=== PATIENT | male | born 1950 | race Caucasian/White ===

== ENCOUNTER 2022-08-21 17:25 | Inpatient (IN) | payer MEDICARE ==
[~2022-08-21] VITALS: Ht 172.7 cm; Wt 72.6 kg
[2022-08-21] MEDS ORDERED: Prinivil10 MG PO (19:47)
[2022-08-21] MEDS ORDERED: NOVOLOG100 UNIT/2 (19:47)
[2022-08-21 19:50] LABS: BASOPHILS ABSOLUTE AUTO 0.02 K/mm3 (0.00-0.23); BASOPHILS PERCENT AUTO 0 % (0-2); EOSINOPHILS ABSOLUTE AUTO 0.08 K/mm3 (0.00-0.68); EOSINOPHILS PERCENT AUTO 1 % (0-6); Hematocrit 36.6 % (37.0-53.0); Hemoglobin 12.9 g/dL (13.5-17.5); IMMATURE GRAN ABSOLUTE AUTO 0.01 K/mm3 (0.00-0.10); IMMATURE GRAN PERCENT AUTO 0 % (0-1); LYMPHOCYTES ABSOLUTE AUTO 1.82 K/mm3 (0.84-5.20); LYMPHOCYTES PERCENT AUTO 28 % (21-46); MONOCYTES ABSOLUTE AUTO 0.41 K/mm3 (0.16-1.47); MONOCYTES PERCENT AUTO 6 % (4-13); Mean Corpuscular HGB 31.9 pg (26.0-34.0); Mean Corpuscular HGB Conc 35.2 g/dL (31.5-36.5); Mean Corpuscular Volume 91 fL (80-100); Mean Platelet Volume 10.6 fL (9.1-12.4); NEUTROPHILS ABSOLUTE AUTO 4.23 K/mm3 (1.96-9.15); NEUTROPHILS PERCENT AUTO 64 % (41-73); Platelet Count 212 K/mm3 (150-400); RDW Coefficient Variation 12.5 % (11.7-14.2); RDW Standard Deviation 40.8 fL (35.1-46.3); Red Blood Cell Count 4.04 M/mm3 (4.30-5.90); White Blood Cell Count 6.57 K/mm3 (4.00-11.30)
[2022-08-21 20:16] LABS: Albumin, Blood 3.5 g/dL (3.4-5.0); Albumin/Globulin Ratio 1.3 (0.8-1.8); Bilirubin, Total 0.7 mg/dL (0.1-1.0); Bun/Creatinine Ratio 33.5 (12.0-20.0); Calcium, Blood 9.6 mg/dL (8.5-10.1); Creatinine, Blood 0.72 mg/dL (0.60-1.20); Globulin, Blood 2.7 g/dL (2.2-4.0); Magnesium, Blood 2.4 mg/dL (1.6-2.4); Potassium, Blood 4.2 mmol/L (3.5-5.5); Total Protein, Blood 6.2 g/dL (6.4-8.2)
[2022-08-21 20:43] LABS: International Normalized Ratio 1.07; Prothrombin Time Results 11.2 Sec (9.7-11.5)
[2022-08-22 03:44] LABS: Mean Corpuscular HGB 31.5 pg (26.0-34.0); Mean Corpuscular HGB Conc 35.1 g/dL (31.5-36.5); Mean Corpuscular Volume 90 fL (80-100); Mean Platelet Volume 10.3 fL (9.1-12.4); Platelet Count 212 K/mm3 (150-400); RDW Coefficient Variation 12.3 % (11.7-14.2); Red Blood Cell Count 4.13 M/mm3 (4.30-5.90); White Blood Cell Count 7.96 K/mm3 (4.00-11.30)
[2022-08-22 04:03] LABS: Bun/Creatinine Ratio 35.5 (12.0-20.0); Calcium, Blood 8.8 mg/dL (8.5-10.1); Creatinine, Blood 0.76 mg/dL (0.60-1.20); Potassium, Blood 3.9 mmol/L (3.5-5.5)
--- NOTE | 2022-08-22 06:38 | NUR ---
SHIFT SUMMARY: NEURO: PATIENT ALERT AND ORIENTED CARDIAC: PATIENT HR 30'S TO 50S WITH THE LOWEST RECORDED RATE AT 27 SUSTAINED. BP STABLE WHEN HR IS 34 AND UP. PATIENT IN SECOND DEGREE HEART BLOCK, ON DOPAMINE FOR RATE AND BP. AFEBRILE. EPISODES OF HOT FLASHES AND NAUSEA OCCASIONALLY. RESP: RA. LUNGS CLEAR. NO SOB REPORTED. GI: PATIENT NAUSEATED, ONE DOSE OF PRN ZOFRAN GIVEN : USED URINAL IND. VOIDED ADEQUATE UOP SKIN: WNL OTHER: PATIENT STATES THAT HE TAKES GOSERELIN FOR HIS PROSTATE CANCER, AND STATES DIZZINESS WORSENED AND HOT FLASHES STARTED. DID NOT RECEIVE 'S DOSE. PATIENT HAS OWN INSULIN PUMP AND DOSES ACCORDINGY.
--- NOTE | 2022-08-22 07:30 | NUR ---
ASSUMED CARE PT. ALERT AND ORIENTED THIS AM. ABLE TO REPOSITION SELF IN BED FOR COMFORT. PT. DENIES ANY PAIN THIS AM. CURRENTLY ON DOPAMIN GTT FOR BRADYCARDIA. PT. HR OCCASIONALLY DROPS TO MID 30S, THEN RETURNS TO THE 50S. PT. REPORTS HX OF OCCASIONAL DIZZINESS WHEN HR DROPS BUT DENIES AT THIS TIME, HOWEVER DOES REPORT HAVING "HOT FLASH" WHEN HR IS IN THE 30S. PT. REMAINS ON BEDREST AT THIS TIME. PLANS FOR PACEMAKER THIS AM. SECURITY TO BEDSIDE PER PT REQUEST TO TAKE WALLETS TO SAFE. OTHER BELONGINGS IN PT BELONINGS BAG AND LOCKED IN IN ROOM CABINENT. BG CHECK THIS AM, PT MANAGING BG WITH HOME INSULIN PUMP. PT. CALL LIGHT IN REACH.
--- NOTE | 2022-08-22 08:09 | NUR ---
DR. MONTES TO PT BEDSIDE TO CONSENT PT FOR PACEMAKER.
--- NOTE | 2022-08-22 09:20 | NUR ---
PT TO COMPOSING MACHINE OPERATOR AT THIS TIME.
--- NOTE | 2022-08-22 12:00 | NUR ---
PT. BACK FROM SALES COUNSELOR, SITE ASSESSED DURING HAND OFF WITH SALES COUNSELOR STAFF, MILD SWELLING TO SITE, DRESSING CLEAN DRY AND INTACT. PT. RYTHM PACED RATE CURRENTLY 58. PT VSS UPON ARRIVAL TO UNIT. PT INSTRUCTED ON USE OF ARM, AND SLING PLACED TO LEFT SHOULDER.
--- NOTE | 2022-08-22 13:21 | NUR ---
PT HR INCREASED TO 120S, PACER SPIKES NOTED WITH EVERY BEAT, MANUAL PULSE MATCHED RATE SHOWING, PT DENIED ANY CHEST PAIN OR PRESSURE, BP DECREASED WITH RATE INCREASED. AFTER APPROX 1 MIN, PT RATE RETURNED TO THE 60S. PT RATE THEN INCREASED AGAIN TO THE LOW 100S. PACER SPIKES NOTED BEFORE EVERY BEAT. CALL TO DR. MONTES TO UPDATE.
--- NOTE | 2022-08-22 16:45 | NUR ---
PT. TO IMAGING FOR CHEST XRAY. RESTING COMFORTABLY IN BED. VSS. NO ADDITIONAL SWELLING OR BRUISING TO PACER SITE.
--- NOTE | 2022-08-22 18:43 | NUR ---
SHIFT SUMMARY PT. REMAINS ALERT AND ORIENTED. DUAL CHAMBER PACEMAKER PLACED THIS AM. MINIMAL REDNESS AND SWELLING TO SITE, REMAINS UNCHANGED. NO OOZING NOTED. PT. HAS SLING IN PLACE TO LEFT ARM. PT MANAGING BG WITH HOME INSULIN PUMP. PLANS FOR D/C TO HOME TOMORROW. FOLLOW UP APPOINTMENT INFO FOR [facility] IS IN CHART.
--- NOTE | 2022-08-22 22:13 | NUR ---
PT. TRANSFERED TO U [facility], REPORT GIVEN TO MJ KING
--- NOTE | 2022-08-22 23:21 | NUR ---
CARE ASSUMPTION: PATIENT ICU TRANSFER ARRIVED BY BRENDAN AT 2150 AND WALKED TO PCU BED. PACER PACED AT 50, AFEBRILE, 1/10 PAIN FOLLOWING MEDICATION ADMIN IN ICU. VS WNL. PACER SITE C/D/I, NO HEMATOMA. PATIENT COMPLIANT WITH KEEPING LEFT ARM IN SLING. PLEASANT AND COOPERATIVE WITH CARE. USES URINAL AT BEDSIDE AND CALL APPROPRIATELY. PLAN TO D/C HOME TOMORROW. BED LOW AND CALL LIGHT IN REACH.
[2022-08-23 03:57] LABS: Hematocrit 34.5 % (37.0-53.0); Hemoglobin 12.2 g/dL (13.5-17.5); Mean Corpuscular HGB 31.9 pg (26.0-34.0); Mean Corpuscular HGB Conc 35.4 g/dL (31.5-36.5); Mean Corpuscular Volume 90 fL (80-100); Platelet Count 162 K/mm3 (150-400); RDW Coefficient Variation 12.3 % (11.7-14.2); RDW Standard Deviation 40.2 fL (35.1-46.3); Red Blood Cell Count 3.83 M/mm3 (4.30-5.90); White Blood Cell Count 6.24 K/mm3 (4.00-11.30)
[2022-08-23 04:23] LABS: Albumin, Blood 3.1 g/dL (3.4-5.0); Albumin/Globulin Ratio 1.1 (0.8-1.8); Bilirubin, Total 0.8 mg/dL (0.1-1.0); Bun/Creatinine Ratio 26.8 (12.0-20.0); Calcium, Blood 8.7 mg/dL (8.5-10.1); Creatinine, Blood 0.89 mg/dL (0.60-1.20); Globulin, Blood 2.9 g/dL (2.2-4.0); Potassium, Blood 3.8 mmol/L (3.5-5.5); Thyroid Stimulating Hormone 6.47 uIU/mL (0.360-4.800)
--- NOTE | 2022-08-23 06:42 | NUR ---
SHIFT SUMMARY: PATIENT VS WNL RA, PACER PACING IN 50S THOUGH HR WAS >70 DURING 0400 VITALS. A&O X4. PLAN TO D/C TODAY. USES URINAL AT BEDSIDE AND CAN AMBULATE. NO ADVERSE EVENTS THIS SHIFT. MEDICATED PER EMAR. BED LOW WITH CALL LIGHT IN PLACE. WILL REPORT TO ONCOMING RN.
[2022-08-23] MEDS ORDERED: ATEN25 PO (11:49)
[2022-08-23] MEDS ORDERED: ACET325 PO (11:50)
--- NOTE | 2022-08-23 12:33 | NUR ---
DISCHARGE SUMMARY PT AMBULATED TO PERSONAL VEHICLE ESCORTED BY THIS RN. ALL PERSONAL BELONGINGS AND DISCHARGE INSTRUCTIONS WERE IN THE POSSESSION OF THE PT AND THEIR FRIEND AT THE TIME OF DISCHARGE. ALL QUESTIONS AND CONCERNS WERE ADDRESSED PRIOR TO DISCHARGE AND PT STATED AN UNDERSTANDING OF DISCHARGE INSTRUCTIONS AND WHOM TO CONTACT WITH FURTHER QUESTIONS AND CONCERNS.
== END 2022-08-23 12:22 | disposition home or self-care (01) | DRG 244 ==
LOC: ER 17:25 → ICUW 17:27 → ER 18:29 → ICUW 18:29 → PCU 08-22 22:05
PROVIDERS: Emergency Medicine; Internal Medicine; ADMIT Internal Medicine
PROC: 0JH606Z Insertion of Pacemaker, Dual Chamber into Chest Subcutaneous Tissue and Fascia, Open Approach (ICD-10-PCS; principal; 2022-08-22)
PROC: 02H63JZ Insertion of Pacemaker Lead into Right Atrium, Percutaneous Approach (ICD-10-PCS; 2022-08-22)
PROC: 02HK3JZ Insertion of Pacemaker Lead into Right Ventricle, Percutaneous Approach (ICD-10-PCS; 2022-08-22)
DX: I44.2 Atrioventricular block, complete (principal); F10.20 Alcohol dependence, uncomplicated; G43.909 Migraine, unspecified, not intractable, without status migrainosus; I10 Essential (primary) hypertension; E10.21 Type 1 diabetes mellitus with diabetic nephropathy; D63.8 Anemia in other chronic diseases classified elsewhere; C61 Malignant neoplasm of prostate; Z87.891 Personal history of nicotine dependence; Z90.49 Acquired absence of other specified parts of digestive tract; Z91.048 Other nonmedicinal substance allergy status; Z79.4 Long term (current) use of insulin; Z79.899 Other long term (current) drug therapy
CPT/HCPCS: 33208; 36415; 71046; 80048; 80053; 82947; 83735; 84443; 84484; 85025; 85027; 85610; 85730; 93005; 93010; 93306; 96365; 96375; 99152; 99153; 99285-25; A9270; C1781; C1785; C1894; C1898; G0378; J0461; J0690; J1265; J1580; J1644; J2250; J2370; J2405; J3010; J7040; Q9967